=== PATIENT | male | born 1960 | race Hispanic/Latino ===

== ENCOUNTER 2020-12-31 14:13 | Outpatient (CLI) | payer OTHER | END 2020-12-31 14:14 | disposition home or self-care (01) | LOC: BICMRI 14:13 | PROVIDERS: ATTEND Family Medicine | DX: S49.92XD Unspecified injury of left shoulder and upper arm, subsequent encounter (principal); M19.012 Primary osteoarthritis, left shoulder; S43.432A Superior glenoid labrum lesion of left shoulder, initial encounter ==